=== PATIENT | female | born 1990 | race Caucasian/White ===

== ENCOUNTER 2019-06-19 09:08 | Outpatient (CLI) | payer OTHER ==
--- NOTE | 2019-06-19 12:21 | RAD ---
HYSTEROSALPINGOGRAM: INDICATIONS: Infertility. The patient is a 0, para 0. Last menstrual period started 06/13/2019 and was nor mal. Negative test. FINDINGS: Fallopian tubes opacify promptly and appear normal. Fimbria appear normal. There is spill from both f imbria. The uterine cavity appears normal. IMPRESSION: Negative hysterosalpingogram. PROCEDURE IN DETAIL: The patient was placed in lithotomy on the fluoro table. A sterile speculum was placed. The cervix wa s cleaned with Betadine. The cervical canal was dilated and the uterus was sounded to 4 cm. An HSG ca theter was introduced into the uterine cavity and the balloon was inflated. Iodinated contrast was sl owly injected under fluoroscopic observation. Serial images were obtained. The patient tolerated the procedure well and there were no problems or complications. POS: ALLISON
== END 2019-06-19 09:09 | disposition home or self-care (01) ==
LOC: RAD 09:08
PROVIDERS: ATTEND Obstetrics & Gynecology
DX: Z31.41 Encounter for fertility testing (principal)
CPT/HCPCS: 36415; 58340; 74740; 84703